=== PATIENT | female | born 1985 | race Two or more races ===

== ENCOUNTER → 2021-12-25 | Outpatient (CLI) | payer OTHER ==
--- NOTE | 2021-12-25 17:16 | KCIC ---
MRI BRAIN WO Date: 12/25/2021 3:50 PM Indication: Chronic migraine w/o aura.. Worsening chronic headaches, nausea, vomiting, dizziness, bl urred vision. Comparison: None. Technique: Multiplanar multisequence MRI of the brain was performed without intravenous contrast usin g the standard protocol. Findings: Orbitofrontal region obscured on some sequences due to artifact from dental hardware. No acute infarct. No acute or chronic hemorrhage. The ventricles are normal in size and configuration without hydrocephalus. The scalp and calvarium are normal. The pituitary and sella are normal. No Chiari malformation. The v isualized upper cervical spine is normal. The visualized orbits and globes are normal. The visualized paranasal sinuses are clear. The mastoid air cells are clear. Normal flow voids within the vertebral, basilar, and internal carotid arteries indicating patency. IMPRESSION: Orbitofrontal region obscured on some sequences due to artifact from dental hardware. Allowing for th is, no acute infarct, hemorrhage, mass, or hydrocephalus. Electronically signed by: José Miguel Shepard MD (12/25/2021 5:13 PM) [id number]
== END ==
LOC: KCIC MRI 14:47
PROVIDERS: ATTEND Nurse Practitioner Family
DX: G43.709 Chronic migraine without aura, not intractable, without status migrainosus (principal)
CPT/HCPCS: 70551